=== PATIENT | male | born 1975 | race Caucasian/White ===

== ENCOUNTER 2025-04-11 09:09 | Emergency (ER) | payer BC, SELFPAY ==
[2025-04-11 09:20] VITALS: BP 140/90; PULSE 76; RESP 18; TEMP 36.6; O2SAT 98; BMI 29.5
--- NOTE | 2025-04-11 09:20 | ECG_ITS ---
APPROVED REPORT Exam: Resting ECG HR:80 bpm ECG Measurements Heart Rate 80 AXES NC 139 P 63 QRSd 111 QRS 45 QT 348 T 56 QTc 384 Conclusion SINUS RHYTHM WITH SINUS ARRHYTHMIA MODERATE INTRAVENTRICULAR CONDUCTION DELAY [110+ ms QRS DURATION] BORDERLINE ECG Electronically signed by : JUANPABLO MORSE, 04/12/2025 14:07:52
[2025-04-11 09:27] LABS: Coronavirus 19, PCR Not Detected (NotDetected); Influenza A, PCR Not Detected (NotDetected); Influenza B, PCR Not Detected (NotDetected)
--- NOTE | 2025-04-11 09:27 | XR_ITS ---
FINAL REPORT CLINICAL HISTORY: cough shortness of breath FINDINGS: A portable view of the chest is obtained. There is no prior exam for comparison. Cardiac and mediastinal silhouettes are normal. The lungs are clear. There is no pleural effusion or pneumothorax. IMPRESSION: No acute process on this portable exam. Reviewed, Interpreted and Dictated by Melissa Finnegan MD Transcribed by Noemi Stewart Authenticated and [facility]
[2025-04-11 09:31] VITALS: BP 127/86; PULSE 106; RESP 14; O2SAT 97
--- NOTE | 2025-04-11 09:33 | PC.NURSE ---
resp notified of VBG
[2025-04-11 09:34] LABS: Hematocrit 43.2 % (42.0-52.0); Hemoglobin 14.3 g/dL (14.1-18.0); Immature Granulocytes % 0.2 %; Mean Corpuscular HGB Conc 33.1 g/dL (31.8-35.4); Mean Corpuscular Hemoglobin 28.3 pg (27.0-31.2); Mean Corpuscular Volume 85.4 fl (80-94); Nucleated Red Blood Cells % 0 %; Platelet Count 281 K/mm3 (142-424); Red Blood Count 5.06 M/mm3 (4.60-6.20); Red Cell Distribution Width-SD 40.2 fL; White Blood Count 6.0 K/mm3 (4.8-10.8)
[2025-04-11 09:38] LABS: Lactate Venous 2.0 mmol/L (0.4-2.0); VBG HCO3 25.7 mmol/L (23-30); VBG PCO2 51.3 mmol/L (35-51); VBG PH 7.32 mmol/L (7.31-7.41); VBG PO2 42.8 mmol/L (28-40)
[2025-04-11 09:40] LABS: Alanine Aminotransferase 28 U/L (12-78); Albumin Level 4.5 g/dl (3.5-5.0); Albumin/Globulin Ratio 1.5 (1.1-1.8); Alkaline Phosphatase 61 U/L (38-126); Anion Gap 10.0 mEq/L (5-15); Aspartate Amino Transferase 31 U/L (17-59); Bilirubin,Total 0.7 mg/dl (0.2-1.3); Blood Urea Nitrogen 7 mg/dl (9-20); Calcium 9.3 mg/dl (8.4-10.2); Carbon Dioxide 27 mmol/L (22.0-30.0); Chloride 103 mmol/L (98-107); Creatinine Clearance Estimated 149 mL/min (50-200); Creatinine,Serum 0.80 mg/dl (0.66-1.25); Estimated Glomerular Filt Rate 103 ml/min (>60); GFR (African American) 125 ML/MIN (>60); Globulin 3.0 g/dL (1.3-3.2); Glucose 139 mg/dl (74-100); Potassium 4.0 mmoL/L (3.5-5.1); Sodium 136 mmol/L (136-145); Total Protein,Serum 7.5 g/dl (6.3-8.2)
[2025-04-11 09:52] LABS: Troponin I < 0.01 ng/ml (0.00-0.034)
[2025-04-11 10:00] VITALS: BP 121/92; PULSE 81; RESP 12; O2SAT 95
--- OUTSIDE RECORDS SUMMARY | 2025-04-11 10:04 | XMS_ITS | Clinical Summary ---
Author Organization [facility] Address [address] [place] [address] Phone Care Team Providers Care Sole Trimmer Name Role Phone Senia Escoto APRN Unavailable Conditions or Problems No information available. Medications No information available. Medications Administered No information available. Allergies, Adverse Reactions, Alerts No information available. Results No information available. Plan of Care No information available. Procedures No information available. Vital Signs No information available. Immunizations No information available. Advance Directives No information available.
[2025-04-11 10:13] LABS: D-Dimer 0.81 ug/mL (0.0-0.5)
[2025-04-11 10:30] VITALS: BP 126/90; PULSE 75; RESP 14; O2SAT 96
[2025-04-11 11:01] VITALS: BP 137/93; PULSE 75; RESP 13; O2SAT 96
--- NOTE | 2025-04-11 11:05 | ED_ITS ---
Discharge Plan Disposition Patient Disposition: Home, Self-Care Condition: Good Prescriptions Prescriptions: New benzonatate 200 mg capsule 200 mg PO TID PRN (Reason: cough) Qty: 20 0RF Referrals Follow up/Referrals: Provider,Referral, [Primary Care Provider, Medical] - See instructions Activity Restrictions/Add. Instructions Additional Instructions/Restrictions: Tylenol and ibuprofen every 6 hours and you can take the cough medicine as well. Return to the emergency department for any acute or worsening symptoms Clinical Impressions Clinical Impression: Cough Stand Alone Forms Stand Alone Forms: Work/School Release Instructions Patient Instructions: Cough Print Language Print Language: [place] Island[place] Discharge ED Provider: Anna Aguila General Adult HPI General Chief complaint: Cough Stated complaint: sore throat, cough Time Seen by Provider: 04/11/25 09:52 Mode of Arrival: Ambulatory Source of Information: Patient Description of Symptoms (Recalled from ER Triage Doc. by RN): patient states he has been congested short of breath, runny nose sore throat since yesterday. he took a percocet before arrival. History of Present Illness HPI narrative: Patient is a 49-year-old gentleman with no significant past medical history who presented to the emergency department with nose cough congestion, shortness of breath since yesterday. Patient states that he took a Percocet that was not his prior to arrival given pain. Patient denies any chest pain. Patient denies any abdominal pain nausea vomiting or diarrhea. Patient denies any pulmonary history. Patient denies any history of blood clots. Patient denies any recent travel. Patient denies any hemoptysis. Patient denies any fevers. Patient denies any productive cough. Patient denies any medical problems, does not take any daily medications. Related Data Previous Rx's ?Medication ?Instructions ?Recorded benzonatate 200 mg capsule 200 mg PO TID PRN cough #20 caps 04/11/25 Allergies Allergy/AdvReac Type Severity Reaction Status Date / Time No Known Allergies Allergy Verified 04/11/25 09:25 [facility] Disclaimer: The information contained in this section may have been updated after the patient was seen, as this information can be updated by other users. Social History Smoking Status: Current every day smoker alcohol intake: never current occupational status: other Travel in the last 8 weeks?: None ROS Obtained: Yes All systems reviewed & no additional complaints except as documented and Yes Systems reviewed as appropriate & no additional complaints except as documented Physical Exam General General appearance: alert and in no apparent distress Head Head exam: atraumatic, normocephalic and normal inspection Eye Eye exam: Present normal appearance, PERRL and EOMI; Absent scleral icterus ENT ENT exam: Present normal exam and normal external ear exam Neck Neck exam: Present normal inspection and full ROM Chest Chest inspection: Present normal inspection and symmetric chest wall rise Respiratory Respiratory exam: Present normal lung sounds bilaterally; Absent respiratory distress or wheezes Cardiovascular Cardiovascular exam: Present regular rate, normal rhythm and normal heart sounds Abdominal Exam Abdominal exam: Present soft and distention; Absent tenderness, guarding or rebound Extremities Exam Extremities exam: Present normal inspection and full ROM Back Exam Back exam: Present normal inspection and full ROM Neurological Exam Neurological exam: Present alert and oriented X3 Psychiatric Psychiatric exam: Present normal affect and normal mood Skin Skin exam: Present warm and dry Medical Decision Making Medical Records Medical records reviewed: Yes I reviewed the patient's medical records. Screening: Per USPSTF and CDC recommendations, given the prevalence of disease in our region, it is our hospital?s policy to screen for HIV and viral Hepatitis for all patients aged 18 and over and those with ongoing risk factors. Daniel Inquiry Pt receiving controlled substance: No Vital Signs: 04/11/25 09:20 04/11/25 09:31 04/11/25 10:00 Temperature 97.9 F Temperature Source Oral Pulse Rate 106 H 81 Pulse Rate [Right Radial] 76 Respiratory Rate 18 14 12 Blood Pressure 127/86 121/92 H Blood Pressure [Right Arm] 140/90 Blood Pressure Mean [Right Arm] 106 Blood Pressure Source Blood Pressure Source [Right Arm] Automatic Cuff Blood Pressure Position Blood Pressure Position [Right Arm] Supine 02 Sat by Pulse Oximetry 98 97 95 Oxygen Delivery Method Room Air 04/11/25 10:30 04/11/25 11:01 04/11/25 11:18 Temperature 98.0 F Temperature Source Oral Pulse Rate 75 75 75 Pulse Rate [Right Radial] Respiratory Rate 14 13 16 Blood Pressure 126/90 137/93 H 137/93 H Blood Pressure [Right Arm] Blood Pressure Mean [Right Arm] Blood Pressure Source Automatic Cuff Blood Pressure Source [Right Arm] Blood Pressure Position Sitting Blood Pressure Position [Right Arm] 02 Sat by Pulse Oximetry 96 96 Oxygen Delivery Method Room Air Lab Data Lab results reviewed: Yes I reviewed the patient's lab results. Lab Results 04/11/25 09:17: SARS-CoV-2 (PCR) Not detected, Influenza A Untype (PCR) Not detected, Influenza Type B (PCR) Not detected 04/11/25 09:20: WBC 6.0, RBC 5.06, Hgb 14.3, Hct 43.2, MCV 85.4, MCH 28.3, MCHC 33.1, RDW 12.9, Plt Count 281, MPV 9.1, Neut % (Auto) 67.0, Lymph % (Auto) 20.3, Sibley % (Auto) 7.6, Eos % (Auto) 4.4, Baso % (Auto) 0.5, Neut # (Auto) 4.0, Lymph # (Auto) 1.2, Sibley # (Auto) 0.5, Eos # (Auto) 0.3, Baso # (Auto) 0.0, D-Dimer 0.81 H 04/11/25 09:27: VBG pH 7.32, VBG pCO2 51.3 H, VBG pO2 42.8 H, VBG HCO3 25.7, VBG Total CO2 27.2 H, VBG O2 Saturation 74.9 H, VBG Base Excess -0.5, VBG Lactic Acid 2.0 04/11/25 09:30: Sodium 136, Potassium 4.0, Chloride 103, Carbon Dioxide 27, Anion Gap 10.0, BUN 7 L, Creatinine 0.80, Estimated Creat Clear 149, Estimated GFR 103, Est GFR ( Amer) 125, Glucose 139 H, Calcium 9.3, Total Bilirubin 0.7, AST 31, ALT 28, Alkaline Phosphatase 61, Troponin I < 0.01, Total Protein 7.5, Albumin 4.5, Globulin 3.0, Albumin/Globulin Ratio 1.5 04/11/25 09:20 04/11/25 09:30 Orders (Tests/Meds): ORDERS Category Date Time Status Chest XR -- portable [XR chest portable] Stat Exams 04/11/25 09:27 Completed Complete Blood Count Auto Diff Stat Lab 04/11/25 09:20 Completed Comprehensive Metabolic Panel Stat Lab 04/11/25 09:30 Completed D-Dimer Stat Lab 04/11/25 09:20 Completed Rapid PCR Covid and Flu A/B Stat Lab 04/11/25 09:17 Completed Troponin I Stat Lab 04/11/25 09:30 Completed Venous Blood Gas Stat RT 04/11/25 09:27 Completed Medical Decision Narrative: Patient is a 49-year-old otherwise healthy gentleman who presented to the emergency department with congestion nonproductive cough, shortness of breath. On arrival, patient was hemodynamically stable with unremarkable vital signs. Differential includes but not limited to: Upper respiratory infection, pneumonia, ACS/RI, bronchitis, pulmonary embolism, amongst others. Patient's EKG was reviewed and interpreted by myself and showed normal sinus rhythm without acute ST or T wave changes concerning for ischemia Patient's labs were reviewed and interpreted by myself: CBC showed no leukocytosis, hemoglobin was stable. VBG was unremarkable. D-dimer mildly elevated at 0.81. Respiratory panel was negative. Troponin was less than 0.01. Chest x-ray was obtained and interpreted by myself and showed no acute for consolidation, pneumothorax, pleural effusion or other acute cardiopulmonary process. I suspect that patient symptoms are likely viral in nature. Given that patient symptoms have been present since yesterday, single troponin was indicated. Although D-dimer mildly elevated, patient negative by years criteria for pulmonary embolism. Patient was sent home with cough medication advised to use Tylenol Motrin and patient was otherwise discharged home in stable condition. Critical Care Critical Care Time Critical Care Time: No
[2025-04-11 11:18] VITALS: BP 137/93; PULSE 75; RESP 16; TEMP 36.7; O2SAT 97
== END 2025-04-11 11:19 | disposition home or self-care (01) ==
PROVIDERS: Emergency Provider Student in an Organized Health Care Education/Training Program
DX: R05.9 Cough, unspecified (principal); R06.02 Shortness of breath; R09.89 Other specified symptoms and signs involving the circulatory and respiratory systems; R09.81 Nasal congestion; R79.89 Other specified abnormal findings of blood chemistry; F17.200 Nicotine dependence, unspecified, uncomplicated
CPT/HCPCS: 71045; 80053; 82803; 84484; 85025; 85378; 87636; 93005; 99284